=== PATIENT | male | born 1935 | race Caucasian/White ===

== ENCOUNTER 2021-01-20 10:10 | Emergency (ER) | payer MEDICARE, OTHER ==
--- NOTE | 2021-01-20 12:07 | EDM.PDOC ---
ED HPI GENERAL MEDICAL PROBLEM - General Chief Complaint: Genitourinary Problem Stated Complaint: MEDICAL Time Seen by Provider: 01/20/21 11:45 Source of Information: Reports: Patient, Family. Denies: Old Records History Limitations: Reports: Other (no old records) - History of Present Illness INITIAL COMMENTS - FREE TEXT/NARRATIVE: 85 yo male [place]. He has a pHx of nocturia, but this problem is getting worse since he arrived here. He is scheduled for an aortic valve replacement and is concerned that this problem may interfere with his upcoming procedure. His family has noticed intermittent mild confusion and more fatigue recently. He denies dysuria. Onset: Gradual Duration: Week(s):, Getting Worse Location: Reports: Pelvis Quality: Reports: Other (pain not reported) Severity: Moderate Improves with: Reports: None Worsens with: Reports: Other (time) Context: Reports: Other (See HPI) Associated Symptoms: Reports: No Other Symptoms. Denies: Fever/Chills Treatments SOFTWARE TEST SPECIALIST: Reports: Other (see below) (none) Bilateral Hand Pain Score (Numeric/FACES): 5 - Related Data Allergies Allergy/AdvReac Type Severity Reaction Status Date / Time No Known Allergies Allergy Verified 01/20/21 12:28 Home Meds: Home Meds Alfuzosin HCl [Alfuzosin HCl ER] 10 mg PO BEDTIME #30 tab.er.24h 01/20/21 [Rx] Cetirizine [ZyrTEC] 10 mg PO DAILY 01/20/21 [History] Fluticasone Propionate [Flonase] 1 spray TOP DAILY 01/20/21 [History] Metoprolol Tartrate 25 mg PO BID 01/20/21 [History] Warfarin [Coumadin] 5 mg PO ASDIRECTED 01/20/21 [History] amLODIPine [Norvasc] 5 mg PO DAILY 01/20/21 [History] atorvaSTATin [Lipitor] 40 mg PO BEDTIME 01/20/21 [History] ED ROS GENERAL - Review of Systems Review Of Systems: See Below Constitutional: Reports: No Symptoms HEENT: Reports: No Symptoms Respiratory: Reports: No Symptoms Cardiovascular: Reports: No Symptoms Endocrine: Reports: Fatigue GI/Abdominal: Reports: No Symptoms : Reports: Frequency. Denies: Dysuria Musculoskeletal: Reports: No Symptoms Skin: Reports: No Symptoms Neurological: Reports: Confusion (mild at times, other times none). Denies: Headache ED EXAM, RENAL/ - Physical Exam Exam: See Below Exam Limited By: No Limitations General Appearance: Alert, WD/WN, No Apparent Distress Eye Exam: Bilateral Eye: Normal Inspection Ears: Normal External Exam, Normal Canal, Hearing Grossly Normal, Normal TMs Nose: Normal Inspection, No Blood Throat/Mouth: Normal Inspection, Normal Lips, Normal Oropharynx, Normal Voice, No Airway Compromise Head: Atraumatic, Normocephalic Neck: Normal Inspection Respiratory/Chest: No Respiratory Distress, Lungs Clear, Normal Breath Sounds, No Accessory Muscle Use Cardiovascular: Regular Rate, Rhythm, No Edema GI/Abdominal: Normal Bowel Sounds, Soft, Non-Tender, No Distention Back Exam: No: Normal Inspection Extremities: Normal Inspection, Normal Range of Motion, Non-Tender, No Pedal Edema Neurological: Alert, Oriented, CN II-XII Intact, Normal Cognition, No Motor/Sensory Deficits Psychiatric: Normal Affect, Normal Mood Skin Exam: Warm, Dry, Intact, Normal Color, No Rash Course - Vital Signs Last Recorded V/S: Last Vital Signs Temp 36.6 C 01/20/21 11:53 Pulse 105 H 01/20/21 11:53 Resp 98 H 01/20/21 11:53 BP 115/59 L 01/20/21 11:53 Pulse Ox 18 L 01/20/21 11:53 - Orders/Labs/Meds Orders: Active Orders 24 hr Category Date Time Status Bladder Scan [RC] ASDIRECTED Care 01/20/21 12:02 Active Zavala Catheter Insertion [Insert Urinary Catheter] [OM. Care 01/20/21 13:00 Ordered PC] Q24H Urinary Catheter Assessment [RC] ASDIRECTED Care 01/20/21 12:49 Active Labs: Laboratory Tests 01/20/21 Range/Units 12:15 Urine Color Yellow (YELLOW) Urine Appearance Slightly cloudy A (CLEAR) Urine pH 5.5 (5.0-8.0) Ur Specific [place] 1.025 (1.008-1.030) Urine Protein Negative (NEGATIVE) mg/dL Urine Glucose (UA) Negative (NEGATIVE) mg/dL Urine Ketones Negative (NEGATIVE) mg/dL Urine Occult Blood Negative (NEGATIVE) Urine Nitrite Negative (NEGATIVE) Urine Bilirubin Negative (NEGATIVE) Urine Urobilinogen 0.2 (0.2-1.0) EU/dL Ur Leukocyte Esterase Negative (NEGATIVE) Urine RBC Not seen (0-5) Urine WBC Not seen (0-5) Ur Epithelial Cells Rare Amorphous Sediment Few Urine Bacteria Moderate Urine Mucus Moderate Urine Other See note Meds: Medications Discontinued Medications Generic Name Dose Route Start Last Admin Trade Name Freq PRN Reason Stop Dose Admin Lidocaine HCl 10 ml 01/20/21 12:44 Lidocaine 2% Jelly 10 Ml [employer]rojet MUCMEM 01/20/21 12:45 ONETIME ONE Departure - Departure Time of Disposition: 14:05 Disposition: Home, Self-Care 01 Condition: Fair Clinical Impression: Urinary retention BPH (benign prostatic hyperplasia) Qualifiers: Lower urinary tract symptom presence: symptoms present Lower urinary tract symptom detail: incomplete bladder emptying Qualified Code(s): N40.1 - Benign prostatic hyperplasia with lower urinary tract symptoms; R39.14 - Feeling of incomplete bladder emptying - Discharge Information *PRESCRIPTION DRUG MONITORING PROGRAM REVIEWED*: Not Applicable *COPY OF PRESCRIPTION DRUG MONITORING REPORT IN PATIENT MARY: Not Applicable Prescriptions: Alfuzosin HCl [Alfuzosin HCl ER] 10 mg PO BEDTIME #30 tab.er.24h Instructions: Indwelling Urinary Catheter Care, Adult Referrals: PCP,None [Primary Care Provider] - Forms: ED Department Discharge Additional Instructions: See your doctor when you get home to discuss removal of your catheter and potential urological referral. The alfuzocin prescription you can start at your discretion and take daily or wait and discuss with Dr. Arias. Return for fever or dislodgement of your catheter. Sepsis Event Note (ED) - Evaluation Sepsis Screening Result: No Definite Risk - Focused Exam Vital Signs: Vital Signs Temp Pulse Resp BP Pulse Ox 01/20/21 11:53 36.6 C 105 H 98 H 115/59 L 18 L 01/20/21 10:59 36.6 C 105 H 98 H 115/59 L 18 L - My Orders Last 24 Hours: My Active Orders 01/20/21 12:02 Bladder Scan [RC] ASDIRECTED 01/20/21 12:49 Urinary Catheter Assessment [RC] ASDIRECTED 01/20/21 13:00 Zavala Catheter Insertion [Insert Urinary Catheter] [OM.PC] Q24H - Assessment/Plan Last 24 Hours: My Active Orders 01/20/21 12:02 Bladder Scan [RC] ASDIRECTED 01/20/21 12:49 Urinary Catheter Assessment [RC] ASDIRECTED 01/20/21 13:00 Zavala Catheter Insertion [Insert Urinary Catheter] [OM.PC] Q24H
[2021-01-20] MEDS ORDERED: Lidocaine 2% Jelly 10 ML Urojet MUCMEM ONE (12:44)
== END 2021-01-20 14:38 | disposition home or self-care (01) ==
LOC: JP.ED 10:10
DX: N40.1 Benign prostatic hyperplasia with lower urinary tract symptoms (principal); R33.8 Other retention of urine; Z79.899 Other long term (current) drug therapy
CPT/HCPCS: 51702; 51798; 81001; 99284-25